=== PATIENT | female | born 2000 | race Caucasian/White ===

== ENCOUNTER 2024-08-26 15:56 | Emergency (ER) | payer OTHER ==
[2024-08-26 16:12] VITALS: BP 132/86; PULSE 120; RESP 18; TEMP 98.2; BMI 21.4
[2024-08-26] MEDS ORDERED: DEXAMETHASONE SOD PHOSPHATE 10 MG/1 ML VIAL ONE (17:06)
[2024-08-26] MEDS ORDERED: ALBUTEROL SO4 2.5/IPRATROPIUM 0.5 INH SOL 3 ML VIAL.NEB. NEB ONE (17:06)
[2024-08-26] MEDS: DEXAMETHASONE SOD PHOSPHATE 10 MG/1 ML VIAL PO ONE (17:15)
[2024-08-26] MEDS: ALBUTEROL SO4 2.5/IPRATROPIUM 0.5 INH SOL 3 ML VIAL.NEB. NEB ONE (17:15)
[2024-08-26 17:41] LABS: THROAT:GRP A STREP NOT DETECTED (NOTDETECTED)
== END 2024-08-26 18:47 | disposition home or self-care (01) ==
LOC: JERFT 15:56 → JER 15:56 → JERFT 18:47
PROC: 3E0F7GC Introduction of Other Therapeutic Substance into Respiratory Tract, Via Natural or Artificial Opening (ICD-10-PCS; principal; 2024-08-26)
DX: R05.9 Cough, unspecified (principal); U07.1 COVID-19; J01.90 Acute sinusitis, unspecified
CPT/HCPCS: 0241U-QW; 71046-TC-FY; 84703; 87651; 99284-25; J1100